=== PATIENT | male | born 1960 | race Caucasian/White ===

== ENCOUNTER 2019-08-17 09:10 | Inpatient (IN) | payer MEDICAID ==
[~2019-08-17] VITALS: Ht 172.7 cm; Wt 76.2 kg
[2019-08-17 10:21] VITALS: BP 147/53
[2019-08-17] MEDS ORDERED: TUBERCULIN, PURIFIED PROTEIN DERIVATIVE 5 TU/0.1 ML SYRINGE ID ONE (10:30)
[2019-08-17 15:59] VITALS: BP 147/53
[2019-08-17 16:01] VITALS: BP 147/53
[2019-08-17 16:02] VITALS: BP 106/63
[2019-08-17] MEDS: LORazepam 2 MG TABLET PO PRN (17:30)
[2019-08-17 22:00] VITALS: BP 129/78
[2019-08-18 02:00] VITALS: BP 122/77
[2019-08-18 07:25] VITALS: BP 115/75
[2019-08-18 08:16] LABS: BASOPHILS % (AUTO) 0.6 % (0.0-2.0); EOSINOPHILS % (AUTO) 2.6 % (1.0-6.0); HEMATOCRIT 43.3 % (41-53); HEMOGLOBIN 14.1 g/dL (13.5-17.5); LYMPHOCYTES # (AUTO) 0.9 K/uL (1.0-4.8); LYMPHOCYTES % (AUTO) 40.7 % (22.0-44.0); MEAN CORPUSCULAR HEMOGLOBIN 27.7 pg (26.0-34.0); MEAN CORPUSCULAR HGB CONC 32.7 G/dL (31.0-37.0); MEAN CORPUSCULAR VOLUME 85 fL (80-100); MONOCYTES # (AUTO) 0.6 K/uL (0.1-1.0); MONOCYTES % (AUTO) 25.6 % (2.0-9.0); NEUTROPHILS # (AUTO) 0.7 K/uL (1.8-7.7); NEUTROPHILS % (AUTO) 30.5 % (40.0-70.0); PLATELET COUNT (AUTO) 176 K/uL (150-450); RED BLOOD CELL COUNT(AUTO) 5.11 MIL/uL (4.50-5.90); RED CELL DISTRIBUTION WIDTH 14.6 % (11.5-14.5)
[2019-08-18 09:16] LABS: ALANINE AMINOTRANSFERASE 89 U/L (12-78); ALBUMIN 3.2 g/dL (3.4-5.0); ALKALINE PHOSPHATASE 91 U/L (46-116); ANION GAP 13 mmol/L (8-16); ASPARTATE AMINOTRANSFERASE 90 U/L (15-37); BILIRUBIN,TOTAL 0.9 mg/dL (0.1-1.0); CALCIUM, TOTAL 8.7 mg/dL (8.8-10.5); CARBON DIOXIDE 21 mmol/L (22-29); CHLORIDE 104 mmol/L (98-107); CREATININE 0.83 mg/dL (0.60-1.30); GLOMERULAR FILTR. RATE CALC > 60 mL/min (>60); GLUCOSE,RANDOM 79 mg/dL (70-110); POTASSIUM 4.2 mmol/L (3.5-5.1); SODIUM SERUM 138 mmol/L (136-145); TOTAL PROTEIN, SERUM 7.4 g/dL (6.4-8.2); UREA NITROGEN, BLOOD 12 mg/dL (7-18)
[2019-08-18 10:00] VITALS: BP 124/77
[2019-08-18] MEDS: FLUoxetine HCL 20 MG CAPSULE PO SCH (10:42)
[2019-08-18 14:00] VITALS: BP 113/62
[2019-08-18 16:00] VITALS: BP 140/70
[2019-08-18] MEDS: ZOLPIDEM TARTRATE 10 MG TABLET PO PRN (21:11)
[2019-08-19 06:26] VITALS: BP 118/75
[2019-08-19 08:33] VITALS: BP 111/66
[2019-08-19] MEDS: FLUoxetine HCL 20 MG CAPSULE PO SCH (08:58)
[2019-08-19 16:11] VITALS: BP 112/69
[2019-08-19] MEDS: LURASIDONE HCL 20 MG TABLET PO SCH (16:57)
[2019-08-19] MEDS: LORazepam 2 MG TABLET PO PRN (16:57)
[2019-08-20 06:48] VITALS: BP 100/60
[2019-08-20 06:51] VITALS: BP 100/60
[2019-08-20 08:25] VITALS: BP 105/62
[2019-08-20 08:25] LABS: HEMATOCRIT 43.8 % (41-53); LYMPHOCYTES # (AUTO) 0.9 K/uL (1.0-4.8); MEAN CORPUSCULAR HEMOGLOBIN 27.7 pg (26.0-34.0); MONOCYTES # (AUTO) 0.4 K/uL (0.1-1.0); NEUTROPHILS # (AUTO) 0.7 K/uL (1.8-7.7)
[2019-08-20 08:35] LABS: BASOPHILS % (AUTO) 0.7 % (0.0-2.0); EOSINOPHILS % (AUTO) 2.5 % (1.0-6.0); HEMOGLOBIN 14.5 g/dL (13.5-17.5); MEAN CORPUSCULAR VOLUME 84 fL (80-100); MONOCYTES % (AUTO) 19.6 % (2.0-9.0); NEUTROPHILS % (AUTO) 34.2 % (40.0-70.0); PLATELET COUNT (AUTO) 223 K/uL (150-450); RED BLOOD CELL COUNT(AUTO) 5.22 MIL/uL (4.50-5.90); RED CELL DISTRIBUTION WIDTH 14.3 % (11.5-14.5)
[2019-08-20] MEDS: FLUoxetine HCL 20 MG CAPSULE PO SCH (09:15)
[2019-08-20 15:29] VITALS: BP 117/68
[2019-08-20 16:02] VITALS: BP 117/68
[2019-08-20 16:29] VITALS: BP 117/69
[2019-08-20] MEDS: LURASIDONE HCL 20 MG TABLET PO SCH (16:48)
[2019-08-20] MEDS: LORazepam 2 MG TABLET PO PRN (16:49)
[2019-08-21 04:01] VITALS: BP 111/69
[2019-08-21 08:24] VITALS: BP 100/58
[2019-08-21 08:25] VITALS: BP 100/58
[2019-08-21] MEDS: FLUoxetine HCL 20 MG CAPSULE PO SCH (08:33)
[2019-08-21 16:00] VITALS: BP 114/84
[2019-08-21 16:02] VITALS: BP 114/84
[2019-08-21] MEDS: LORazepam 2 MG TABLET PO PRN (16:11)
[2019-08-21] MEDS: LURASIDONE HCL 20 MG TABLET PO SCH (16:11)
[2019-08-22 05:29] VITALS: BP 109/71
[2019-08-22 05:43] VITALS: BP 109/71
[2019-08-22] MEDS: FLUoxetine HCL 20 MG CAPSULE PO SCH (08:11)
[2019-08-22 08:27] VITALS: BP 91/56
[2019-08-22] MEDS: MULTIVITAMINS WITH MINERALS, THERAPEUTIC TABLET PO SCH (08:51)
[2019-08-22 16:04] VITALS: BP 119/61
[2019-08-22] MEDS: LURASIDONE HCL 20 MG TABLET PO SCH (16:44)
[2019-08-22] MEDS: LORazepam 2 MG TABLET PO PRN (16:44)
[2019-08-23 06:09] VITALS: BP 100/59
[2019-08-23 08:10] VITALS: BP 105/53
[2019-08-23] MEDS: MULTIVITAMINS WITH MINERALS, THERAPEUTIC TABLET PO SCH (08:35)
[2019-08-23] MEDS: FLUoxetine HCL 20 MG CAPSULE PO SCH (08:36)
[2019-08-23] MEDS: LORazepam 2 MG TABLET PO PRN ×2 (13:43→17:52)
[2019-08-23 16:05] VITALS: BP 104/62
[2019-08-23] MEDS: LURASIDONE HCL 20 MG TABLET PO SCH (16:18)
[2019-08-24 08:35] VITALS: BP 107/64
[2019-08-24] MEDS: FLUoxetine HCL 20 MG CAPSULE PO SCH (08:40)
[2019-08-24] MEDS: MULTIVITAMINS WITH MINERALS, THERAPEUTIC TABLET PO SCH (08:40)
[2019-08-24] MEDS ORDERED: prezista PO (14:26)
[2019-08-24] MEDS ORDERED: truvada PO (14:27)
[2019-08-24] MEDS ORDERED: norvir PO (14:30)
[2019-08-24 16:03] VITALS: BP 130/74
[2019-08-24] MEDS: LORazepam 2 MG TABLET PO PRN (16:39)
[2019-08-24] MEDS: LURASIDONE HCL 20 MG TABLET PO SCH (16:39)
[2019-08-25 01:05] VITALS: BP 128/77
[2019-08-25] MEDS: ZOLPIDEM TARTRATE 10 MG TABLET PO PRN (01:28)
[2019-08-25] MEDS: LORazepam 2 MG TABLET PO PRN ×2 (01:28→17:18)
[2019-08-25 08:44] VITALS: BP 102/55
[2019-08-25] MEDS ORDERED: PALIPERIDONE PALMITATE 234 MG/1.5 ML SYRINGE IM SCH (09:00)
[2019-08-25] MEDS: MULTIVITAMINS WITH MINERALS, THERAPEUTIC TABLET PO SCH (09:10)
[2019-08-25] MEDS: FLUoxetine HCL 20 MG CAPSULE PO SCH (09:11)
[2019-08-25] MEDS ORDERED: RITO100T PO (13:26)
[2019-08-25] MEDS ORDERED: TRUVT PO (13:26)
[2019-08-25] MEDS ORDERED: DARU600T PO (13:26)
[2019-08-25 17:12] VITALS: BP 127/78
[2019-08-25] MEDS: LURASIDONE HCL 20 MG TABLET PO SCH (17:18)
[2019-08-26 08:32] VITALS: BP 128/90
[2019-08-26] MEDS: FLUoxetine HCL 20 MG CAPSULE PO SCH (08:38)
[2019-08-26] MEDS: MULTIVITAMINS WITH MINERALS, THERAPEUTIC TABLET PO SCH (08:38)
[2019-08-26 12:10] VITALS: BP 118/75
[2019-08-26] MEDS: LORazepam 2 MG TABLET PO PRN (12:12)
[2019-08-26] MEDS: LURASIDONE HCL 20 MG TABLET PO SCH (16:39)
[2019-08-26 16:50] VITALS: BP 119/65
[2019-08-27 08:42] VITALS: BP 121/64
[2019-08-27] MEDS: MULTIVITAMINS WITH MINERALS, THERAPEUTIC TABLET PO SCH (09:31)
[2019-08-27] MEDS: FLUoxetine HCL 20 MG CAPSULE PO SCH (09:31)
[2019-08-27] MEDS: LORazepam 2 MG TABLET PO PRN ×2 (11:28→18:58)
[2019-08-27] MEDS: LURASIDONE HCL 20 MG TABLET PO SCH (16:43)
[2019-08-27 17:09] VITALS: BP 117/77
[2019-08-27] MEDS: HALOPERIDOL 5 MG TABLET PO PRN (18:58)
[2019-08-28 08:00] VITALS: BP 97/53
[2019-08-28] MEDS: FLUoxetine HCL 20 MG CAPSULE PO SCH (08:10)
[2019-08-28] MEDS: MULTIVITAMINS WITH MINERALS, THERAPEUTIC TABLET PO SCH (08:10)
[2019-08-28] MEDS: LORazepam 2 MG TABLET PO PRN (11:35)
[2019-08-28] MEDS: LURASIDONE HCL 20 MG TABLET PO SCH (16:40)
[2019-08-28 18:26] VITALS: BP 119/75
[2019-08-29] MEDS: MULTIVITAMINS WITH MINERALS, THERAPEUTIC TABLET PO SCH (08:14)
[2019-08-29] MEDS: FLUoxetine HCL 20 MG CAPSULE PO SCH (08:15)
[2019-08-29 08:45] VITALS: BP 110/75
[2019-08-29] MEDS: LORazepam 2 MG TABLET PO PRN (10:05)
[2019-08-29] MEDS: HALOPERIDOL 5 MG TABLET PO PRN (14:15)
[2019-08-29 16:35] VITALS: BP 123/77
[2019-08-29] MEDS: LURASIDONE HCL 20 MG TABLET PO SCH (17:00)
[2019-08-30] MEDS: FLUoxetine HCL 20 MG CAPSULE PO SCH (08:14)
[2019-08-30] MEDS: MULTIVITAMINS WITH MINERALS, THERAPEUTIC TABLET PO SCH (08:14)
[2019-08-30 09:07] VITALS: BP 122/72
[2019-08-30] MEDS: LORazepam 2 MG TABLET PO PRN (09:46)
[2019-08-30] MEDS ORDERED: LURA20TA PO (12:16)
[2019-08-30] MEDS ORDERED: FLUO-191 PO (12:16)
== END 2019-08-30 13:20 | disposition home or self-care (01) | DRG 885 ==
LOC: B3A 13:20 → 3EI 08-25 00:40
PROVIDERS: ADMIT Psychiatry & Neurology Child & Adolescent Psychiatry; ATTEND Psychiatry & Neurology Child & Adolescent Psychiatry
DX: F25.0 Schizoaffective disorder, bipolar type (principal); R45.851 Suicidal ideations; Z59.0 Homelessness; D72.819 Decreased white blood cell count, unspecified; F10.20 Alcohol dependence, uncomplicated; F14.10 Cocaine abuse, uncomplicated; F15.10 Other stimulant abuse, uncomplicated; Z91.5 Personal history of self-harm
CPT/HCPCS: 86361; 87081; 87536